=== PATIENT | female | born 1965 | race Caucasian/White ===

== ENCOUNTER 2020-06-24 18:19 | Emergency (ER) | payer SELFPAY ==
[2020-06-24 18:21] VITALS: BP 132/79; PULSE 88; RESP 16; TEMP 36.3; O2SAT 99; BMI 26.5
--- NOTE | 2020-06-24 18:38 | ED.VIS.LOWEX ---
History of Present Illness Chief Complaint: Lower Extremity Injury Detail of Chief Complaint: pain swelling LLE Informant: Patient Onset: Days - 2-3 Context: Gradual Onset Timing: Continuous Quality of Pain: Aching Location: LLE, popliteal and calf Current Severity: Moderate Maximum Severity: Moderate Worsened by: walking Relieved by: rest Associated Symptoms: Negative for: Parasthesia, Weakness, Loss of Funtion Narrative: Spontaneous onset of pain and swelling in the left lower extremity. No history of DVT in her legs or lungs in the past. She denies any recent immobilization, hospitalization, travel, surgery. No recent illnesses. No fevers. No chest pain, shortness of breath, palpitations, lightheadedness/near syncope/syncope. She is feeling well otherwise just has pain in her legs. She states it started like a charley horse. No recent injury to the leg. She is a smoker, but she takes no exogenous female hormones or control pills. - Past Medical History (1) Depression Status: Chronic (2) Hypertension Status: Chronic (3) Hypothyroid Status: Acute Past Medical History - Allergies and Home Meds Allergies/Adverse Reactions: Allergies No Known Allergies Allergy (Verified 06/24/20 18:20) Primary Care Physician: NOT,DEFINED [Primary Care Provider] - Smoking Status: Current every day smoker Review of Systems General: Denies: Chills, Fever, Sweats Eyes: Denies: Visual changes - bilaterally, Diplopia ENT: Denies: Rhinorrhea, Sore throat Cardiovascular: Denies: Chest pain, Palpitations Respiratory: Denies: Dyspnea, Cough, Dyspnea on exertion Gastrointestinal: Denies: Abdominal pain, Nausea, Vomiting, Diarrhea, Melena, Hematochezia Genitourinary: Denies: Dysuria, Hematuria, Frequency Musculoskeletal: Reports: Swelling, Extremity Pain. Denies: Back pain Skin: Denies: Rash, Wounds Neurological: Denies: Headache, Weakness, Numbness Physical Exam Vital Signs/Narrative: Vital Signs Temp Pulse Resp BP Pulse Ox 06/24/20 18:21 97.3 F L 88 16 132/79 H 99 Inital Vital Signs reviewed: Yes - Extremity Exam Left Knee: - - Tender popliteal space, no fullness or cords palpable. Normal thigh. Tender in the left calf. Asymmetric edema in the left lower extremity, none in the right. No palpable cords. Strong pulses distally. General: Well nourished, Well developed, - - well-appearing, nad Head: Normocephalic, Atraumatic Cardiovascular: Regular rate, Regular rhythm, No murmurs. Negative for: Tachycardia Respiratory: No distress, CTA bilaterally, Chest nontender Skin: Normal color, No rash, No Trauma Neurological: Alert, Oriented x3, Cranial nerves II-XII grossly intact, Normal Strength, Normal Sensation, Normal Gait Psychological: Normal affect, Normal Mood Diagnostic/Tx/Re-eval - Medical Decision Making Concern for acute DVT. Patient has no risk factors other than being a smoker. She did say that her sister has an unknown clotting disorder that her sister knows of but she does not. She presents after hours on the weekend when ultrasound is not available. She was treated with Lovenox 1.5 mg/kg to give her 24 hours of coverage, and she will be set up for an outpatient ultrasound tomorrow morning. She has no symptoms or signs of a pulmonary embolus at this time. She was given an Ultram for pain, but I am not writing her a prescription for that because she is on venlafaxine and there may be an interaction. ED Disposition - Plan for ED Patient: Disposition: Home or Assisted Living Diagnosis: Pain and swelling of left lower extremity Instructions: ED DVT Referrals: NOT,DEFINED [Primary Care Provider] - Doctor,Your [STAFF PHYSICIAN] - (next week, but obtain your outpatient ultrasound tomorrow first)
[2020-06-24] MEDS: traMADol 50 MG Tablet PO (19:07)
[2020-06-24] MEDS: Enoxaparin 100 MG/ML Syringe SC (19:07)
--- NOTE | 2020-06-25 10:49 | VDLE_ITS ---
Reason For Study: LLE PAIN AND SWELLING RIGHT LEFT CFV is compressible, spontaneous, phasic, GSV is normal. competent and demonstrates normal CFV is compressible, spontaneous, competent, augmentation. and demonstrates pulsatile venous flow. Procedure S/F JUNCTION PROXIMALLY COMPRESSIBLE, This is a venous duplex using B-mode, color MID/DISTAL S/F JUNCTION IS PARTIALLY flow and spectral Doppler. COMPRESSIBLE, DOES NOT APPEAR SECURELY Exam performed in department. ATTACHED. The exam was diagnostic. A preliminary report was called and/or faxed FV, POP V, T/P TRUNK, PTV, PER V, GASTROCS, to Took patient to ED for treatment. SSV ARE DILATED AND NON-COMPRESSIBLE C/W ACUTE DVT. PFV SHOWS FLOW. Interpretation Summary Acute deep venous thrombosis left femoral, popliteal, tibioperoneal trunk, posterior tibial, peroneal, gastrocnemius veins. Superficial thrombophlebitis left small saphenous vein Saphenofemoral junction demonstrates partial compressibility with mobile thrombus. Proximal venous flow is pulsatile suggesting possible proximal venous hypertension or obstruction Patent and compressible left great saphenous vein Normal flow patterns right common femoral vein Ordering Physician: Cleveland Hernandez Performed By: Sagrario Sheppard, SLOANE, RVT
== END 2020-06-24 19:12 | disposition home or self-care (01) ==
PROVIDERS: Emergency Provider Emergency Medicine
DX: M79.605 Pain in left leg (principal); M79.89 Other specified soft tissue disorders; I10 Essential (primary) hypertension; E03.9 Hypothyroidism, unspecified; F32.9 Major depressive disorder, single episode, unspecified; F17.200 Nicotine dependence, unspecified, uncomplicated; Z79.899 Other long term (current) drug therapy
CPT/HCPCS: 93971; 96372; 99283

== ENCOUNTER 2020-06-25 11:02 | Emergency (ER) | payer SELFPAY ==
[2020-06-24 18:21] VITALS: BMI 26.5
[2020-06-25 11:04] VITALS: BP 125/80; PULSE 85; RESP 16; TEMP 36.4; O2SAT 99; BMI 26.5
--- NOTE | 2020-06-25 11:24 | ED.DCSUM_ITS ---
History of Present Illness Informant: Patient Onset: Days Narrative: 55-year-old female presents from ultrasound after a positive DVT result in her left leg. She started having pain and a behind her left knee and swelling in the left leg 3 days ago. 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 She was on Coumadin several years ago but is on no blood thinners now. She takes aspirin 81 mg daily. She states the leg is unchanged from yesterday. No chest pain or shortness of breath. <Arleth Varela - Last Filed: 06/25/20 11:28> <Sandip Bragg - Last Filed: 06/25/20 12:13> Chief Complaint: Lower Extremity Injury Past Medical History Past Medical History: - - Hypertension, hypothyroidism, DVT Smoking Status: Current every day smoker <Arleth Varela - Last Filed: 06/25/20 11:28> <Sandip Bragg - Last Filed: 06/25/20 12:13> - Allergies and Home Meds Allergies/Adverse Reactions: Allergies No Known Allergies Allergy (Verified 06/24/20 18:20) Primary Care Physician: Kolton Tarango MD [STAFF PHYSICIAN] - Review of Systems General: Denies: Chills, Fever, Sweats Eyes: Denies: Visual changes - bilaterally, Diplopia ENT: Denies: Rhinorrhea, Sore throat Cardiovascular: Denies: Chest pain, Palpitations Respiratory: Denies: Dyspnea, Cough, Dyspnea on exertion Gastrointestinal: Denies: Abdominal pain, Nausea, Vomiting, Diarrhea, Melena, Hematochezia Genitourinary: Denies: Dysuria, Hematuria, Frequency Musculoskeletal: Reports: Swelling, Extremity Pain. Denies: Back pain Skin: Denies: Rash, Wounds Neurological: Denies: Weakness, Parasthesia, Numbness <Arleth Varela - Last Filed: 06/25/20 11:28> Physical Exam Vital Signs/Narrative: Vital Signs Temp Pulse Resp BP Pulse Ox 06/25/20 11:04 97.5 F L 85 16 125/80 H 99 General: Well nourished, Well developed, No Acute Distress Head: Normocephalic, Atraumatic Eyes: Perrl, EOMI ENT: Moist mucous membranes, No rhinorrhea Neck: Supple, Nontender Cardiovascular: Regular rate, Regular rhythm, No murmurs Respiratory: No distress, CTA bilaterally, Chest nontender Extremities: - - Left lower extremity edema up to knee. Tender over left calf and popliteal region. No overlying skin changes. Strength and sensation intact. 2+ dorsalis pedis pulse. Skin: Normal color, No rash Neurological: Alert, Oriented x3, Cranial nerves II-XII grossly intact, Normal Strength, Normal Sensation Psychological: Normal affect, Normal Mood <Arleth Varela - Last Filed: 06/25/20 11:28> Vital Signs/Narrative: Vital Signs Temp Pulse Resp BP Pulse Ox 06/25/20 11:04 97.5 F L 85 16 125/80 H 99 <Sandip Bragg - Last Filed: 06/25/20 12:13> Diagnostic/Tx/Re-eval Left lower extremity ultrasound shows a clot in the femoral vein, popliteal vein, T/P trunk, PTV, per V, gastrocs, SSV - Medical Decision Making 55-year-old female presented with ultrasound showing a DVT in the left leg. Is in the femoral vein and extensively below the knee. She appears well nontoxic. Vital signs are within normal limits. She has no chest pain or shortness of breath and have no concern for PE at this time. She has no contraindications to blood thinners. We fully discussed risks and benefits of anticoagulation. She will be started on Eliquis with the first dose given here and a starter pack for home. She requested a referral to a new PCP and [place] which I provided, but she will follow-up with her provider in [place] next week concerning the DVT. She was discharged home in stable condition. <Arleth Varela - Last Filed: 06/25/20 11:28> - Medical Decision Making Patient had outpatient ultrasound today which shows a DVT. She does have swelling of the leg. She is nontoxic and appears well. Patient will be started on Eliquis. She does not have health insurance so we gave her information on the Eliquis website to obtain a co-pay card as a 7th grade social studies teacher is not here to assist with this today. Patient will be referred to a PCP for follow-up. <Sandip Bragg - Last Filed: 06/25/20 12:13> ED Disposition <Arleth Varela - Last Filed: 06/25/20 11:28> <Sandip Bragg - Last Filed: 06/25/20 12:13> - Plan for ED Patient: Disposition: Home or Assisted Living Diagnosis: Left leg DVT Instructions: ED DVT Prescriptions: Apixaban [Eliquis] 5 mg PO BID #74 tab Transmission Status: Received by [employer] [facility] Referrals: Kolton Tarango MD [STAFF PHYSICIAN] -
[2020-06-25] MEDS: APIXABAN 5 MG TABLET 10 MG PO (12:17)
== END 2020-06-25 12:18 | disposition home or self-care (01) ==
LOC: ED 11:42
PROVIDERS: Emergency Provider Physician Assistant
DX: I82.412 Acute embolism and thrombosis of left femoral vein (principal); I82.432 Acute embolism and thrombosis of left popliteal vein; I82.462 Acute embolism and thrombosis of left calf muscular vein; I82.492 Acute embolism and thrombosis of other specified deep vein of left lower extremity; Z86.718 Personal history of other venous thrombosis and embolism; I10 Essential (primary) hypertension
CPT/HCPCS: 99282